=== PATIENT | male | born 1960 | race Caucasian/White ===

== ENCOUNTER → 2018-08-12 | Outpatient (CLI) | payer BC ==
[2018-08-12 12:46] LABS: ALANINE AMINOTRANSFERASE 34 U/L (0-55); ALBUMIN 4.5 GM/DL (3.2-4.5); ALKALINE PHOSPHATASE 50 U/L (40-136); BILIRUBIN,TOTAL 0.5 MG/DL (0.1-1.0); BUN/CREATININE RATIO 23; CALCIUM 9.7 MG/DL (8.5-10.1); CARBON DIOXIDE 21 MMOL/L (21-32); CHLORIDE 108 MMOL/L (98-107); CREATININE SERUM 0.87 MG/DL (0.60-1.30); GFR ESTIMATED > 60; GLUCOSE 102 MG/DL (70-105); POTASSIUM 4.3 MMOL/L (3.6-5.0); SODIUM 138 MMOL/L (135-145)
--- NOTE | 2018-08-12 20:16 | Diagnostic Imaging Report ---
PROCEDURE: CT neck soft tissue with contrast. TECHNIQUE: Multiple contiguous axial images were obtained through the neck after the administration of contrast. INDICATION: Palpable abnormality in the left neck. FINDINGS: Images through the skull base are unremarkable. There is mural thickening within ethmoid air cells, bilaterally. Parotid salivary glands are unremarkable in appearance. Submandibular salivary glands are also normal in appearance; however, there is an approximately 2.7 x 2.3 cm irregular mass centered to the left of midline in the supraglottic airway. This could arise from base of tongue or epiglottis. This results in significant narrowing of the airway. In addition, there is an approximately 3.5 x 2.8 cm lymph node deep to the left sternocleidomastoid muscle at this level with areas of internal low density suggesting necrosis. No other definite pathologic adenopathy is identified. The larynx, itself, appears to be unremarkable. There is loss of cervical lordosis without evidence of acute cervical spinal abnormality. IMPRESSION: Approximately 2.7 cm supraglottic mass to the left of midline may arise from base of tongue or epiglottis in the vallecula. Given the presence of an adjacent necrotic lymph node, which corresponds to patient's palpable abnormality, most likely consideration would be for head and neck cancer and direct visualization and biopsy would be useful. Findings were discussed with referring clinician at 1545 hours on 08/12/2018. Report was faxed to the office of Dr. Parviz Vega at 8:10 p.m., by gogo. Dictated by: Dictated on workstation # [id number]
== END ==
LOC: RAD 12:04
PROVIDERS: ATTEND Internal Medicine
DX: L04.0 Acute lymphadenitis of face, head and neck (principal)
CPT/HCPCS: 36415; 70491; 80053

== ENCOUNTER 2020-02-20 18:34 | Emergency (ER) | payer BC, OTHER ==
[~2020-02-20] VITALS: Ht 172 cm; Wt 86.6 kg
[2020-02-20] MEDS ORDERED: TADA5TAB13 (18:52)
[2020-02-20] MEDS ORDERED: NS IV 1000 ML 1,000 ML IV STA (18:56)
--- NOTE | 2020-02-20 18:56 | ED Abdominal Pain ---
General Chief Complaint: Abdominal/GI Problems Stated Complaint: ADB PAIN Nursing Triage Note: PT REPORTS LOWER ABDOMINAL PAIN AROUND UMBILICUS STARTING AT 0200 THIS AM. REPORTS HE FIRST FELT CONSTIPATED AND HAS TAKEN LAXITIVES, STOOL SOFTNERS, AND AN ENEMA WITH NO RELEIF. PT REPORTS THE PAIN IS INCREASING. PT DENIES N/V/D. PT ALSO REPORTS LOW GRADE FEVER Sepsis Screen: No Definite Risk History of Present Illness Date Seen by Provider: Feb 20, 2020 Time Seen by Provider: 18:53 Initial Comments 59-year-old male presents with abdominal pain. Patient reports around 2 AM this morning he started with pain was around his umbilicus. There is now moved down to the middle lower abdomen. That first he thought he was constipated taken some laxatives stool softeners an enema with no relief. He reports she's had increasing pain that presents like a "wave" that very from an 8 or 9 down about 1-2 at baseline. He feels like a low-grade fever. He has had no previous abdominal surgeries. The pains little bit greater on the right than the left in the lower abdomen. He has no urinary symptoms. No nausea vomiting or diarrhea. Allergies and Home Medications Allergies Coded Allergies: No Known Drug Allergies (Unverified , 05/24/11) Patient Home Medication List Home Medication List Reviewed: Yes Review of Systems Review of Systems Constitutional: No chills, No fever Respiratory: Denies Cough, Denies Shortness of Air Cardiovascular: Denies Chest Pain, Denies Irregular Heart Rate Gastrointestinal: Abdominal Pain, Constipated; Denies Diarrhea, Denies Nausea, Denies Vomiting Musculoskeletal: No back pain Skin: no symptoms reported Psychiatric/Neurological: No Symptoms Reported Endocrine: No Symptoms Reported Past Kqdtfsj-Xfnpzj-Nwafie Hx Past Med/Social Hx: Reviewed Nursing Past Med/Soc Hx Patient Social History Alcohol Use: Regular Use Alcohol Beverage of Choice: Beer Recreational Drug Use: Yes Drug of Choice: MARIJUANA Smoking Status: Never a Smoker Recent Foreign Travel: No Contact w/Someone Who Travel: No Recent Infectious Disease Expo: No Recent Hopitalizations: No Physical Abuse: No Sexual Abuse: No Mistreated: No Fear: No Seasonal Allergies Seasonal Allergies: No Past Medical History Surgeries: Yes (ORAL CA LESION REMOVED) Adenoidectomy, Tonsillectomy Respiratory: No Cardiac: No Neurological: No Genitourinary: No Gastrointestinal: No Musculoskeletal: No Endocrine: No Cancer: Yes Oral What Type of Treatment Did You: Chemotherapy, Radiation Integumentary: No Physical Exam Vital Signs Vital Signs - First Documented 02/20/20 18:44 Temp 37.7 Pulse 71 Resp 20 B/P (MAP) 170/106 (127) Pulse Ox 98 Capillary Refill : Less Than 3 Seconds Height/Weight/BMI Height: '" Weight: lbs. oz. kg; 29.00 BMI Method: General Appearance: WD/WN, no apparent distress Respiratory: lungs clear, normal breath sounds Cardiovascular: normal peripheral pulses, regular rate, rhythm Gastrointestinal: soft; No distended, No guarding; tenderness (periumbilical and mid lower abdomen/suprapubic) Extremities: normal range of motion, non-tender Back: no CVA tenderness, no vertebral tenderness Neurologic/Psychiatric: pocket creaser II-XII nml as tested, alert, normal mood/affect, oriented x 3 Skin: normal color, warm/dry Focused Exam Lactate Level 02/20/20 19:06: Lactic Acid Level 1.09 Lactic Acid Level Laboratory Tests Test 02/20/20 19:06 Lactic Acid Level 1.09 MMOL/L (0.50-2.00) Progress/Results/Core Measures Results/Orders Lab Results Laboratory Tests Test 02/20/20 18:56 02/20/20 19:06 Range/Units White Blood Count 12.2 H 4.3-11.0 10^3/uL Red Blood Count 4.82 4.35-5.85 10^6/uL Hemoglobin 15.8 13.3-17.7 G/DL Hematocrit 44 40-54 % Mean Corpuscular Volume 90 80-99 FL Mean Corpuscular Hemoglobin 33 25-34 PG Mean Corpuscular Hemoglobin Concent 36 32-36 G/DL Red Cell Distribution Width 12.8 10.0-14.5 % Platelet Count 145 130-400 10^3/uL Mean Platelet Volume 10.4 7.4-10.4 FL Neutrophils (%) (Auto) 86 H 42-75 % Lymphocytes (%) (Auto) 5 L 12-44 % Monocytes (%) (Auto) 8 0-12 % Eosinophils (%) (Auto) 1 0-10 % Basophils (%) (Auto) 0 0-10 % Neutrophils # (Auto) 10.5 H 1.8-7.8 X 10^3 Lymphocytes # (Auto) 0.6 L 1.0-4.0 X 10^3 Monocytes # (Auto) 1.0 0.0-1.0 X 10^3 Eosinophils # (Auto) 0.1 0.0-0.3 10^3/uL Basophils # (Auto) 0.0 0.0-0.1 10^3/uL Neutrophils % (Manual) 87 % Lymphocytes % (Manual) 6 % Monocytes % (Manual) 7 % Blood Morphology Comment NORMAL Sodium Level 135 135-145 MMOL/L Potassium Level 3.9 3.6-5.0 MMOL/L Chloride Level 101 98-107 MMOL/L Carbon Dioxide Level 23 21-32 MMOL/L Anion Gap 11 5-14 MMOL/L Blood Urea Nitrogen 16 7-18 MG/DL Creatinine 1.02 0.60-1.30 MG/DL Estimat Glomerular Filtration Rate > 60 BUN/Creatinine Ratio 16 Glucose Level 101 70-105 MG/DL Calcium Level 9.2 8.5-10.1 MG/DL Corrected Calcium 9.0 8.5-10.1 MG/DL Total Bilirubin 0.7 0.1-1.0 MG/DL Aspartate Amino Transf (AST/SGOT) 13 5-34 U/L Alanine Aminotransferase (ALT/SGPT) 23 0-55 U/L Alkaline Phosphatase 71 40-136 U/L C-Reactive Protein High Sensitivity 2.03 H 0.00-0.50 MG/DL Total Protein 7.3 6.4-8.2 GM/DL Albumin 4.3 3.2-4.5 GM/DL Lipase 23 8-78 U/L Lactic Acid Level 1.09 0.50-2.00 MMOL/L My Orders Orders - RING,DEVON L DO Cbc With Automated Diff (02/20/20 18:56) Comprehensive Metabolic Panel (02/20/20 18:56) Hs C Reactive Protein (02/20/20 18:56) Lactic Acid Analyzer (02/20/20 18:56) Lipase (02/20/20 18:56) Ua Culture If Indicated (02/20/20 18:56) Acute Abd Series (02/20/20 18:56) Ns Iv 1000 Ml (Sodium Chloride 0.9%) (02/20/20 18:56) Ed Iv/Invasive Line Start (02/20/20 18:56) Manual Differential (02/20/20 18:56) Ct Abdomen/Pelvis W (02/20/20 19:34) Iohexol Injection (Omnipaque 350 Mg/Ml 1 (02/20/20 20:00) Received Contrast (Hold Metformin- Contr (02/20/20 20:00) Ns (Ivpb) (Sodium Chloride 0.9% Ivpb Bag (02/20/20 20:00) Medications Given in ED Current Medications Medications Dose Ordered Sig/Ankit Route Start Time Stop Time Status Last Admin Dose Admin Iohexol 100 ml ONCE ONCE IV 02/20/20 20:00 02/20/20 20:01 DC 02/20/20 19:57 100 ML Sodium Chloride 100 ml ONCE ONCE IV 02/20/20 20:00 02/20/20 20:01 DC 02/20/20 19:57 80 ML Vital Signs/I&O 02/20/20 18:44 Temp 37.7 Pulse 71 Resp 20 B/P (MAP) 170/106 (127) Pulse Ox 98 Blood Pressure Mean: 127 Progress Progress Note : Time: 20:26 Progress Note Patient with diverticulitis on CT. Patient was offered inpatient treatment versus outpatient antibiotics, clear liquid diet 24-48 hours and return as needed. At this time he would like to try outpatient therapy. Stable and will be discharged home. He should return to the ER as needed. Diagnostic Imaging Diagonstic Imaging: Xray, CT Plain Films/CT/US/NM/MRI: abdomen Comments [facility]. [place], [place] NAME: [facility] REC#: [id number] PT STATUS: REG ER : 1960 PHYSICIAN: DEVON RING DO ADMIT DATE: 02/20/20/ER Draft Date of Exam:02/20/20 CT ABDOMEN/PELVIS W INDICATION: Low abdominal pain for the last 15 hours. Nausea, vomiting and diarrhea. History of a tumor removed from the back of the tongue. EXAMINATION: CT abdomen and pelvis with contrast. 02/20/2020. All CT scans use one or more of the following dose optimizing techniques: automated exposure control, MA and/or KvP adjustment based on patient size and exam type or iterative reconstruction. FINDINGS: There is marked fat stranding about the sigmoid colon with diverticular disease in the region. Minimal adjacent free fluid is seen however no free air or abscess appreciated. The remaining colon is unremarkable Make that the remaining colon contains fluid, perhaps due to a secondary colitis. There is no obstructive process. The spleen and liver demonstrate no acute abnormality. The gallbladder is unremarkable. The pancreas and adrenal glands unremarkable x-ray changes to the pancreas and left adrenal glands are unremarkable. There is a lesion in the right adrenal gland just over 1 cm in size, possibly an adenoma but nonemergent follow-up using adrenal protocol CT could better characterize. There is atherosclerotic disease. The osseous structures demonstrate no acute abnormality. Visualized lung bases demonstrate scar and/or atelectasis, left greater than right. IMPRESSION: 1. Findings of diverticulitis of the sigmoid colon with adjacent minimal free fluid and surrounding inflammation but no evidence for abscess or free air. 2. Fluid throughout the remaining colon perhaps due to a secondary colitis. Other incidental findings as above. [facility]. [place], [place] NAME: CAROLINE LEDESMA [facility] REC#: [id number] PT STATUS: REG ER : 1960 PHYSICIAN: DEVON RING DO ADMIT DATE: 02/20/20/ER Signed Date of Exam:02/20/20 ACUTE ABD SERIES INDICATION: Abdominal pain. EXAMINATION: Acute abdomen series, 7:18 p.m. COMPARISON: There is no prior study available for comparison. FINDINGS: The accompanying erect PA chest shows the heart size to be within normal limits. There is mild atelectasis/infiltrate in the left lung base. Whether this is chronic or acute is not certain. The lungs are otherwise generally clear. There is no sign of a pneumoperitoneum. Supine and erect views of the abdomen were obtained. There are a few dilated gas filled segments of small bowel present as well as several air-fluid levels. This appearance is nonspecific but the possibility that there is a partial or intermittent small bowel obstruction should be considered. If further imaging is desired, then CT of the abdomen and pelvis would be recommended. There is no mass or organomegaly identified. There is a small linear calcification adjacent to the sacrum on the left. This is of uncertain etiology. This is unlikely to be related to a ureteral calculus. The osseous structures are intact. IMPRESSION: 1. The bowel gas pattern is nonspecific. However the possibility that there is a partial or intermittent small bowel obstruction should be considered. Recommendations as above. 2. There is no acute abnormality of the abdomen or pelvis noted otherwise. 3. There is mild left lower lobe atelectasis/infiltrate. Whether this is chronic or acute is not certain. 4. These results were discussed with Dr. Devon Ring in the Emergency Room at the time of this dictation Departure Impression Primary Impression: Diverticulitis of intestine Qualified Codes: K57.32 - Diverticulitis of large intestine without perforation or abscess without bleeding Disposition: HOME, SELF-CARE Condition: Stable Departure-Patient Inst. Referrals: MAGO ROYAL MD (PCP/Family) Primary Care Physician Patient Instructions: Diverticulitis (DC) Add. Discharge Instructions: Clear liquid diet for 36-48 hours then advance as tolerated Follow-up with your primary care provider/general surgeon and 4-5 days, sooner if needed Return to the ER as needed if symptoms worsen or your not improving All discharge instructions reviewed with patient and/or family. Voiced unders tanding. Scripts Metronidazole (Metronidazole) 500 Mg Tablet 500 MG PO TID for 10 Days, #30 TAB 0 Refills Prov: DEVON RING DO 02/20/20 Levofloxacin (Levaquin) 750 Mg Tablet 750 MG PO DAILY for 10 Days, #10 TAB Prov: DEVON RING DO 02/20/20 DEVON RING DO Feb 20, 2020 18:56
[2020-02-20 19:09] LABS: BASOPHILS % (AUTO) 0 % (0-10); EOSINOPHILS # (AUTO) 0.1 10^3/uL (0.0-0.3); EOSINOPHILS % (AUTO) 1 % (0-10); HEMATOCRIT 44 % (40-54); HEMOGLOBIN 15.8 G/DL (13.3-17.7); LYMPHOCYTES # (AUTO) 0.6 X 10^3 (1.0-4.0); LYMPHOCYTES % (AUTO) 5 % (12-44); MEAN CORPUSCULAR HEMOGLOBIN 33 PG (25-34); MEAN CORPUSCULAR HGB CONC 36 G/DL (32-36); MEAN CORPUSCULAR VOLUME 90 FL (80-99); MEAN PLATELET VOLUME 10.4 FL (7.4-10.4); MONOCYTES % (AUTO) 8 % (0-12); NEUTROPHILS # (AUTO) 10.5 X 10^3 (1.8-7.8); NEUTROPHILS % (AUTO) 86 % (42-75); PLATELET COUNT 145 10^3/uL (130-400); WHITE BLOOD COUNT 12.2 10^3/uL (4.3-11.0)
[2020-02-20 19:22] LABS: ALANINE AMINOTRANSFERASE 23 U/L (0-55); ALBUMIN 4.3 GM/DL (3.2-4.5); ALKALINE PHOSPHATASE 71 U/L (40-136); BILIRUBIN,TOTAL 0.7 MG/DL (0.1-1.0); BUN/CREATININE RATIO 16; CALCIUM 9.2 MG/DL (8.5-10.1); CARBON DIOXIDE 23 MMOL/L (21-32); CHLORIDE 101 MMOL/L (98-107); CREATININE SERUM 1.02 MG/DL (0.60-1.30); GFR ESTIMATED > 60; GLUCOSE 101 MG/DL (70-105); LIPASE 23 U/L (8-78); POTASSIUM 3.9 MMOL/L (3.6-5.0); SODIUM 135 MMOL/L (135-145); TOTAL PROTEIN 7.3 GM/DL (6.4-8.2)
--- NOTE | 2020-02-20 19:23 | NUR ---
PT BACK FROM RADIOLOGY
--- NOTE | 2020-02-20 19:32 | NUR ---
PT C/O PAIN BUT DENIES WANTING MEDS FOR PAIN AT THIS TIME. DR MAXWELL IN W/ PT
--- NOTE | 2020-02-20 19:50 | NUR ---
PT TO CT AT THIS TIME.
--- NOTE | 2020-02-20 19:54 | Diagnostic Imaging Report ---
INDICATION: Abdominal pain. EXAMINATION: Acute abdomen series, 7:18 p.m. COMPARISON: There is no prior study available for comparison. FINDINGS: The accompanying erect PA chest shows the heart size to be within normal limits. There is mild atelectasis/infiltrate in the left lung base. Whether this is chronic or acute is not certain. The lungs are otherwise generally clear. There is no sign of a pneumoperitoneum. Supine and erect views of the abdomen were obtained. There are a few dilated gas filled segments of small bowel present as well as several air-fluid levels. This appearance is nonspecific but the possibility that there is a partial or intermittent small bowel obstruction should be considered. If further imaging is desired, then CT of the abdomen and pelvis would be recommended. There is no mass or organomegaly identified. There is a small linear calcification adjacent to the sacrum on the left. This is of uncertain etiology. This is unlikely to be related to a ureteral calculus. The osseous structures are intact. IMPRESSION: 1. The bowel gas pattern is nonspecific. However the possibility that there is a partial or intermittent small bowel obstruction should be considered. Recommendations as above. 2. There is no acute abnormality of the abdomen or pelvis noted otherwise. 3. There is mild left lower lobe atelectasis/infiltrate. Whether this is chronic or acute is not certain. 4. These results were discussed with Dr. Demetrius Ring in the Emergency Room at the time of this dictation. Dictated by: Dictated on workstation # [id number]
[2020-02-20 19:57] LABS: LYMPHOCYTES % (MANUAL) 6 %; MONOCYTES % (MANUAL) 7 %; NEUTROPHILS % (MANUAL) 87 %
[2020-02-20 19:58] LABS: RBC MORPH NORMAL
[2020-02-20] MEDS ORDERED: HOLD METFORMIN - RECEIVED CONTRAST 20 ML VIAL IV SCH (20:00)
[2020-02-20] MEDS ORDERED: IOHEXOL 350 MG/ML 100 ML (OMNIPAQUE 350) VIAL IV ONE (20:00)
[2020-02-20] MEDS ORDERED: NS 100 ML (IVPB) BAG IV ONE (20:00)
--- NOTE | 2020-02-20 20:00 | NUR ---
PT BACK FROM CT
--- NOTE | 2020-02-20 20:15 | NUR ---
PT RESTING QUIETLY, PT DOES VOICE C/O PAIN BUT DENIES REQUEST OF PAIN MEDS AT THIS TIME.
--- NOTE | 2020-02-20 20:16 | Diagnostic Imaging Report ---
INDICATION: Low abdominal pain for the last 15 hours. Nausea, vomiting and diarrhea. History of a tumor removed from the back of the tongue. EXAMINATION: CT abdomen and pelvis with contrast. 02/20/2020. All CT scans use one or more of the following dose optimizing techniques: automated exposure control, MA and/or KvP adjustment based on patient size and exam type or iterative reconstruction. FINDINGS: There is marked fat stranding about the sigmoid colon with diverticular disease in the region. Minimal adjacent free fluid is seen however no free air or abscess appreciated. The remaining colon is unremarkable Make that the remaining colon contains fluid, perhaps due to a secondary colitis. There is no obstructive process. The spleen and liver demonstrate no acute abnormality. The gallbladder is unremarkable. The pancreas and adrenal glands unremarkable x-ray changes to the pancreas and left adrenal glands are unremarkable. There is a lesion in the right adrenal gland just over 1 cm in size, possibly an adenoma but nonemergent follow-up using adrenal protocol CT could better characterize. There is atherosclerotic disease. The osseous structures demonstrate no acute abnormality. Visualized lung bases demonstrate scar and/or atelectasis, left greater than right. IMPRESSION: 1. Findings of diverticulitis of the sigmoid colon with adjacent minimal free fluid and surrounding inflammation but no evidence for abscess or free air. 2. Fluid throughout the remaining colon perhaps due to a secondary colitis. Other incidental findings as above. Dictated by: Dictated on workstation # [id number]
--- NOTE | 2020-02-20 20:24 | NUR ---
DR MAXWELL IN W/ PT
[2020-02-20] MEDS ORDERED: LEVOFLOXACIN 500 MG TAB (LEVAQUIN) PO STA (20:28)
[2020-02-20] MEDS ORDERED: metroNIDAZOLE 500 MG (FLAGYL) TAB PO STA (20:28)
[2020-02-20] MEDS ORDERED: ACHD5005 PO (20:33)
[2020-02-20] MEDS ORDERED: METR-145 PO (20:33)
[2020-02-20] MEDS ORDERED: LEVO750T9 PO (20:33)
[2020-02-20] MEDS ORDERED: RX-HYDROCODONE/APAP 5/325 MG #4 TAB PK PO ONE (20:35)
[2020-02-20 20:42] VITALS: BP 170/110
--- NOTE | 2020-02-20 20:42 | NUR ---
PT DISCHARGED TO HOME W/ MEDS, RX ET INSTR. PT TO TAKE MEDS DIRECTED, F/U W/ PCP ET RETURN IF SYMPTOMS CHANGE OR GET WORSE. UNDERSTANDING VOICED.
== END 2020-02-20 20:42 | disposition home or self-care (01) ==
LOC: EDUNIT# 18:34 → ER 18:36
DX: K57.32 Diverticulitis of large intestine without perforation or abscess without bleeding (principal); Z85.818 Personal history of malignant neoplasm of other sites of lip, oral cavity, and pharynx
CPT/HCPCS: 36415; 74022; 74177; 80053; 83605; 83690; 85007; 85027; 86141

== ENCOUNTER → 2022-01-25 | Outpatient (CLI) | payer OTHER ==
[~2022-01-25] MED LIST: ACHD5005 PO; CATHETER FLUSH 10 ML SYR IV PRN; HOLD METFORMIN - RECEIVED CONTRAST 20 ML VIAL IV SCH; IOHEXOL 350 MG/ML 100 ML (OMNIPAQUE 350) VIAL IV ONE; LEVO750T9 PO; METR-145 PO; NS 100 ML (IVPB) BAG IV ONE; TADA5TAB13
[2022-01-25 13:15] LABS: CREATININE SERUM 1.22 MG/DL (0.60-1.30)
--- NOTE | 2022-01-25 13:53 | Diagnostic Imaging Report ---
EXAMINATION: CT neck and chest with intravenous contrast. TECHNIQUE: Multiple contiguous axial images were obtained through the neck and chest after the uneventful administration of intravenous contrast. All CT scans use one or more of the following dose optimizing techniques: automated exposure control, MA and/or KvP adjustment based on patient size and exam type or iterative reconstruction. HISTORY: Squamous cell carcinoma COMPARISON: 08/12/2018, 02/20/2020 FINDINGS: Neck CT: Scattered subcentimeter lymph nodes are seen in the neck. None are pathologically enlarged or abnormally enhancing. The muscles of the neck are normal. Bilateral carotid bifurcation calcifications. The previously seen basal tongue mass has resolved. No recurrent mass is seen. Left neck lymphadenopathy is resolved. The glottis is closed and the vocal folds are mildly thickened, similar to prior exam. The base of the skull and the temporal bones are normal. Limited views of the brain including the cerebellum and brainstem are normal. The limited view of the [place] is unremarkable. The visualized portions of the orbits are normal. Chest CT: There is no edema or pneumonia. No pleural effusion. No pneumothorax. No suspicious nodules. There is no axillary or supraclavicular lymphadenopathy. There is no mediastinal lymphadenopathy. Heart size is normal. There are mild coronary artery calcifications. No pericardial effusion. Aorta is normal in caliber. Limited views of the upper abdomen show an unchanged 1.7 x 1.6 cm right adrenal nodule. There are no suspicious osseus lesions. IMPRESSION: 1. Base of tongue mass and left cervical lymph nodes have resolved. No lymphadenopathy in the neck. 2. No metastatic disease in the chest. 3. Unchanged right adrenal nodule. Dictated by: Dictated on workstation # [id number]
== END ==
LOC: RAD 12:41
PROVIDERS: ATTEND Otolaryngology Otolaryngology/Facial Plastic Surgery
DX: C02.9 Malignant neoplasm of tongue, unspecified (principal); E27.9 Disorder of adrenal gland, unspecified
CPT/HCPCS: 36415; 70491; 71260; 82565; 84520

== ENCOUNTER → 2022-12-23 | Outpatient (CLI) | payer BC, OTHER ==
[~2022-12-23] MED LIST changes: -CATHETER FLUSH 10 ML SYR IV PRN
[2022-12-23 10:49] LABS: CREATININE SERUM 1.07 MG/DL (0.60-1.30)
--- NOTE | 2022-12-23 18:01 | Diagnostic Imaging Report ---
CT NECK/CHEST W INDICATION: Basal cell carcinoma of the base of the tongue. COMPARISON: 01/25/2022 and 08/12/2018. TECHNIQUE: CT imaging of the neck and chest was performed with IV contrast. Automatic exposure controls were utilized to keep dose as low as reasonably achievable. FINDINGS: NECK: Base of the tongue is normal in appearance. There is no recurrent mass. Airway remains widely patent. No parapharyngeal or retropharyngeal fluid collection. No cervical lymphadenopathy has developed. Atherosclerotic plaquing is present in the proximal internal carotid arteries but does not appear to result in significant stenosis. The thyroid, bilateral submandibular, and parotid glands have no concerning abnormality. No worrisome focal osseous lesion in the skull base or cervical spine. Visualized paranasal sinuses are clear. No space-occupying mass or hydrocephalus within the visualized aspects of the brain. CHEST: No abnormality in the trachea. There is no pneumonia or edema. No suspicious pulmonary nodules have developed. No pleural effusion or pneumothorax. No supraclavicular or axillary lymphadenopathy. No mediastinal or hilar lymphadenopathy. The heart is normal in size without pericardial effusion. Normal-caliber thoracic aorta. Unchanged low-attenuation right adrenal nodule likely due to benign adenoma. No worrisome focal osseous lesions. IMPRESSION: 1. No features of local recurrence in the neck. 2. No metastatic disease within the chest. 3. Unchanged left adrenal nodule is likely of benign etiology, such as adenoma. Dictated by: Dictated on workstation # [id number]
== END ==
LOC: RAD 10:19
PROVIDERS: ATTEND Otolaryngology Otolaryngology/Facial Plastic Surgery
DX: C01 Malignant neoplasm of base of tongue (principal); E27.9 Disorder of adrenal gland, unspecified
CPT/HCPCS: 36415; 70491; 71260; 82565; 84520